=== PATIENT | female | born 1975 | race Two or more races ===

== ENCOUNTER 2024-03-31 14:34 | Outpatient (RCR) | payer MEDICAID, SELFPAY ==
[2024-03-30 13:55] LABS: Basophils % (Auto) 0 % (0-2.5); Eosinophils # (Auto) 0.1 Thou/mm3 (0.0-0.5); Eosinophils % (Auto) 1 % (0-10); Hematocrit 35.6 % (36.0-46.0); Hemoglobin 12.2 g/dL (12.0-16.0); Immature Granulocytes % (Auto) 0 % (0-0); Immature Granulocytes Auto 0.02 Thou/mm3 (0.00-0.00); Lymphocytes # (Auto) 1.2 Thou/mm3 (1.0-4.8); Lymphocytes % (Auto) 20 % (10-50); Mean Corpuscular HGB Conc 34.3 g/dl (31.0-37.0); Mean Corpuscular Volume 85 fL (80-100); Monocytes # (Auto) 0.5 Thou/mm3 (0.0-0.8); Monocytes % (Auto) 7 % (0-12); Neutrophils # (Auto) 4.4 Thou/mm3 (1.8-7.7); Neutrophils % (Auto) 71 % (37-80); Nucleated Red Blood Cell % 0 /100 WBC (0); Platelet Count 166 Thou/mm3 (140-440); RDW Standard Deviation 40.1 fL (36.4-46.3); White Blood Count 6.2 Thou/mm3 (3.6-11.0)
[2024-03-30 14:16] LABS: Alanine Aminotransferase 54 U/L (10-49); Albumin, Serum 4.5 gm/dL (3.5-5.0); Albumin/Globulin Ratio 1.7 (1.2-2.2); Alkaline Phosphatase 84 U/L (46-116); Anion Gap 8 (7-16); Aspartate Amino Transferase 30 U/L (0-34); BUN/Creatinine Ratio 15 Ratio (12-20); Bilirubin,Total 0.3 mg/dL (0.3-1.2); Blood Urea Nitrogen 15 mg/dL (9-23); Calcium 9.6 mg/dL (8.3-10.6); Calcium (Corrected) 9.6 mg/dL (8.5-10.1); Carbon Dioxide 26.5 mMol/L (20.0-31.0); Chloride 106 mMol/L (98-107); Globulin 2.7 gm/dL (2.3-3.5); Glucose 91 mg/dL (74-106); Osmolality,Calculated 280 (275-295); Potassium 4.1 mMol/L (3.4-5.1); Sodium 140 mMol/L (136-145); Total Protein 7.2 gm/dL (5.7-8.2); eGFR > 60 See Note
[2024-03-30 14:19] LABS: Carcinoembryonic Antigen 1.3 ng/mL (0.0-5.0)
== END 2024-04-11 23:59 | disposition home or self-care (01) ==
LOC: SCTC 14:34
PROVIDERS: Internal Medicine Hematology & Oncology; PCP Nurse Practitioner Family; Referring Provider Nurse Practitioner Family; Visit Provider Radiology Therapeutic Radiology
DX: Z08 Encounter for follow-up examination after completed treatment for malignant neoplasm (principal); Z85.41 Personal history of malignant neoplasm of cervix uteri; Z92.21 Personal history of antineoplastic chemotherapy; Z92.3 Personal history of irradiation
CPT/HCPCS: 36591; 80053; 82378; 85025; 99213; A4216; J1642; G0463

== ENCOUNTER 2024-07-08 09:32 | Outpatient (RCR) | payer MEDICAID, SELFPAY | END 2024-07-10 23:59 | disposition home or self-care (01) | LOC: SCTC 09:32 | PROVIDERS: PCP Nurse Practitioner Family; Referring Provider Nurse Practitioner Family; Visit Provider Radiology Therapeutic Radiology | DX: C53.0 Malignant neoplasm of endocervix (principal); Z92.21 Personal history of antineoplastic chemotherapy; Z92.3 Personal history of irradiation | CPT/HCPCS: 96523; 99212; A4216; J1642; G0463 ==

== ENCOUNTER 2024-07-08 10:10 | Outpatient (AMB) | payer MEDICAID, SELFPAY ==
--- NOTE | 2024-07-08 10:31 | GYNCLNT_ITS ---
Vital Signs 07/08/24 10:32 Height 1.63 m Height Method Stated Weight 114.759 kg Weight Measurement Method Standing Scale BMI 43.4 BP 124/76 Blood Pressure Source Automatic Cuff Blood Pressure Location Left Upper Arm Position Sitting Respiration 16 Pulse 75 Pulse Source Monitor Temp 97.6 F Temp Source Oral Pulse Oximetry (%) 98 Oxygen Delivery Method Room Air Allergies/Home Meds Allergies & Medications Allergies Penicillins Allergy (Severe, Verified 07/08/24 10:36) Rash Medication Reconciliation iron-vit C-vit [id number] acid 100 mg-250 mg-25 mcg-1 mg tablet (Iron) 1 tab PO QDAY 08/24/21 [History Confirmed 07/08/24] tranexamic acid 650 mg tablet 650 mg PO Q8H 7 days #21 tabs 07/08/24 [Rx] Intake Visit Data Collection New Patient or Established: Established Patient (seen at [facility] within 3 years) Reason for Visit:: AUB HISTORY OF ENDO CERVICAL CANCER Seen by Clinical Staff ONLY (RN/MA): No Marketing Program Coordinator Required: No Do You Feel Safe at Home: Yes Authorities Contacted: N/A PCP or OBGYN visit in last 3 months: Yes Hx Now: No Are you currently on any form of Control: No Pain Present Currently: No Pain Scale Used: Harrington-Whitfield/Numerical Pain scale:: 0 Smoking Status Smoking Status: Never smoker 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 1. Little interest or pleasure in doing things: not at all 2. Feeling down, depressed, or hopeless: not at all Total score: 0 PHQ-9 3. Trouble falling or staying asleep, or sleeping too much: Not at all 4. Feeling tired or having little energy: Not at all 5. Poor appetite or overeating: Not at all 6. Feeling bad about yourself - or that you are a failure or have let yourself or your family down: Not at all 7. Trouble concentrating on things, such as reading the newspaper or watching television: Not at all 8. Moving or speaking so slowly that other people could have noticed? - Or the opposite - being so fidgety or restless that you have been moving around a lot more than usual: not at all 9. Thoughts that you would be better off or of hurting yourself in some way: Not at all Total score: 0 Source: Developed by Drs. Edis Claire, Ernestine Tran, Nii Mccoy and colleagues, with an educational quang from [employer]. Depression screen completed yes Social History Living Situation History Marital Status: Lives With: Family Housing: House Tobacco History Smoking Status: Never smoker Second Hand Smoke Exposure: Yes Alcohol History Alcohol Intake: Never Substance Use History Substance Use: NO Domestic Abuse History Do You Feel Safe at Home: Yes Past Medical History Past Medical History Have you ever been diagnosed with any of the following: Neurological Problems Cerebrovascular Accident (CVA): No Transient Ischemic Attacks (TIA): No Dementia: No Alzheimer's Disease: No Parkinson's Disease: No Brain Tumor: No Meningitis: No Seizures: No Cardiology Problems Myocardial Infarction: No Cardiac Arrhythmia: No Atrial Fibrillation: No Angina: No Heart Murmur: No Coronary Artery Disease: No Congestive Heart Failure: No Respiratory Problems Chronic Obstructive Pulmonary Disease (COPD): No Asthma: No Bronchitis: No Tuberculosis: No Sleep Apnea: No Stomache/Intestinal Problems Liver Cancer: No Hepatitis: No Colorectal Cancer: No Genital/Urinary Problems Renal Disease: No Reproductive Problems Breast Cancer: No Previous Pregnancies: Yes (8) Musculoskeletal Problems Fractures: Yes Head,Eye,Nose,Throat Problems Cataracts: No Glaucoma: No Blind: No Retinal Detachment: No Macular Degeneration: No Chronic Ear Infections: No Deafness: No Eye Prosthesis: No Endocrine Problems Diabetes Mellitus Type 1: No Diabetes Mellitus Type 2: No Hypoglycemia: No [place]'s Syndrome: No [place]'s Disease: No Blood Problems Anemia: Yes Other Problems Hospitalization: Yes Blood Transfusions: No Blood Transfusion Reaction: Yes Anesthesia Reactions: No Human Immunodeficiency Virus (HIV): No Chicken Pox: Yes Measles: No Mumps: No Rubella (Lithuanian Measles): No Pertussis: No Clostridium Difficile: No Cervical Cancer: Yes Lung Cancer: No Ovarian Cancer: No History of Present Illness HPI Narrative Patient presents with vaginal bleeding, which began on Saturday afternoon following sexual intercourse that morning. She reports seeing blood in the toilet after wiping and describes the bleeding as 'drips,' with a small blood clot passed the day before yesterday. The patient expresses concern about the possibility of cancer returning. She denies any problems except for vaginal dryness since completing radiation treatment in November 2021. She has a history of cervical cancer diagnosed in 2017, for which she completed radiation treatment in November 2021. Her medical history includes an abnormal Pap smear (ASC-H) in 2017, an endometrial biopsy showing HGSIL with insufficient tissue, and a LEEP procedure in 2018 with CIN2 and negative margins. 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 The patient has been prescribed tranexamic acid for bleeding and has a cholesterol level of 400. She has a 14-year-old child, recently went off her diet, gained over 20 pounds, and is advised to take walks for exercise. She is sexually active with her and has been advised to use lubricant during intercourse due to vaginal dryness. The patient also discussed her history, noting it as a protective factor against breast cancer. Diagnostic Test Results and Labs: - PAP (2018): ASC-H - EMB (2017): HGSIL, insufficient tissue - Endometrial curettage (2018): No hyperplasia or malignancy - LEEP (2019): CIN2, negative margins - PAP (2020): High grade MARTY - Biopsy (2021): CIN3 - Biopsy (07-10-2021): Invasive well-differentiated squamous cell carcinoma - Cholesterol: 400 Review of Systems Review of Systems Systems Reviewed: All systems reviewed, normal except as documented Exam General Limitations: no limitations General Appearance: alert, in no apparent distress, comfortable, cooperative, healthy appearing, well developed and well groomed Head Head exam: atraumatic, normocephalic and normal inspection Neck Neck exam: Present normal inspection, full ROM and trachea midline Chest Chest inspection: Present normal inspection and symmetric chest wall rise Abdominal Abdominal exam: Present soft and normal bowel sounds External exam: Present other (Deferred for the OR) Psych Psychiatric exam: Present normal affect and normal mood Skin Skin exam: Present warm, dry, intact and normal color Assessment & Plan Diagnosis / Problem List (1) Squamous cell carcinoma of cervix, stage 2: Status: Acute (2) Abnormal uterine and vaginal bleeding, unspecified: Status: Acute (3) Squamous cell carcinoma of cervix, stage 2: Status: Acute Plan: - Diagnosed in 2021, completed radiation therapy in November 2021. - Recent post-coital bleeding after intercourse on Saturday morning. - Schedule cervical and endometrial biopsy under anesthesia in hospital setting. - Submit insurance authorization for procedure. - Refer to gynecologic oncologist Dr. Tracie Espana in [place]. - Prescribe tranexamic acid for bleeding control. - Advise use of lubricant during intercourse. - Monitor for increased bleeding or passage of blood clots. (4) Abnormal uterine and vaginal bleeding, unspecified: Status: Acute (5) Hyperlipidemia: Status: Acute Plan: - Cholesterol level reported at 400. - Recommend initiation of cholesterol-lowering medication. - Encourage dietary modifications and exercise. (6) Body mass index (BMI) of 40.1 to 44.9 in adult: Status: Acute Plan: - Recent weight gain of over 20 pounds. - Advise against starting Wegovy (semaglutide) at this time. - Recommend resumption of previous diet. - Encourage regular exercise, including walking. Office Procedures OB Clinic LOC & Office Proc's Nursing/Assessment Patient Status: Initial/New Patient OB Clinic Nursing Assessment: Medication Reconciliation, Update PMH in EMR and Vital Signs OB Clinic Coordination of Care: Complex Care and Chronic Disease 1-5, Education Complex Pt/Fam, Consent,records obtained, informed consent, Education Simp Pt/Fam, 2-3 Insurance Autorizations needed, Results/Orders obtained and Staff clarify orders New Patient Charge New Patient Point Assignment: 1129 New Patient Point Charge: [employer] Level 4 ([id number])
[2024-07-08 10:32] VITALS: BP 124/76; PULSE 75; RESP 16; TEMP 36.4; O2SAT 98; BMI 43.4
== END 2024-07-08 10:44 | disposition home or self-care (01) ==
LOC: HODSOBC 10:10
PROVIDERS: PCP Nurse Practitioner Family; Supervising Provider Obstetrics & Gynecology; Visit Provider Obstetrics & Gynecology
DX: N93.9 Abnormal uterine and vaginal bleeding, unspecified (principal); Z85.41 Personal history of malignant neoplasm of cervix uteri
CPT/HCPCS: 99204; 99213; G0463

== ENCOUNTER 2024-07-16 06:30 | Day surgery (SDC) | payer MEDICAID, SELFPAY ==
[2024-07-15 10:18] VITALS: BMI 43.4
[2024-07-15 12:16] LABS: Basophils % (Auto) 1 % (0-2.5); Eosinophils # (Auto) 0.1 Thou/mm3 (0.0-0.5); Eosinophils % (Auto) 1 % (0-10); Hematocrit 39.9 % (36.0-46.0); Hemoglobin 13.4 g/dL (12.0-16.0); Immature Granulocytes % (Auto) 0 % (0-0); Immature Granulocytes Auto 0.01 Thou/mm3 (0.00-0.00); Lymphocytes # (Auto) 1.2 Thou/mm3 (1.0-4.8); Lymphocytes % (Auto) 23 % (10-50); Mean Corpuscular HGB Conc 33.6 g/dl (31.0-37.0); Mean Corpuscular Hemoglobin 28.9 pg (25.0-35.0); Mean Corpuscular Volume 86 fL (80-100); Monocytes # (Auto) 0.3 Thou/mm3 (0.0-0.8); Monocytes % (Auto) 6 % (0-12); Neutrophils # (Auto) 3.6 Thou/mm3 (1.8-7.7); Neutrophils % (Auto) 69 % (37-80); Nucleated Red Blood Cell % 0 /100 WBC (0); Platelet Count 177 Thou/mm3 (140-440); RDW Standard Deviation 40.3 fL (36.4-46.3); Red Blood Count 4.64 Miln/mm3 (4.00-5.20); White Blood Count 5.2 Thou/mm3 (3.6-11.0)
[2024-07-15 12:54] LABS: Alanine Aminotransferase 57 U/L (10-49); Albumin, Serum 4.4 gm/dL (3.5-5.0); Albumin/Globulin Ratio 1.6 (1.2-2.2); Alkaline Phosphatase 92 U/L (46-116); Anion Gap 9 (7-16); Aspartate Amino Transferase 34 U/L (0-34); BUN/Creatinine Ratio 14 Ratio (12-20); Bilirubin,Total 0.4 mg/dL (0.3-1.2); Blood Urea Nitrogen 13 mg/dL (9-23); Calcium 9.6 mg/dL (8.3-10.6); Calcium (Corrected) 9.6 mg/dL (8.5-10.1); Carbon Dioxide 28.3 mMol/L (20.0-31.0); Chloride 105 mMol/L (98-107); Creatinine (Component) 0.9 mg/dL (0.6-1.3); Globulin 2.7 gm/dL (2.3-3.5); Glucose 105 mg/dL (74-106); Osmolality,Calculated 283 (275-295); Potassium 4.3 mMol/L (3.4-5.1); Sodium 142 mMol/L (136-145); Total Protein 7.1 gm/dL (5.7-8.2); eGFR > 60 See Note
[2024-07-15 13:54] LABS: HCG,Qualitative Serum Negative
[2024-07-16] VITALS (8 sets, daily range): BP systolic 91–133; BP diastolic 47–86; PULSE 71–90; RESP 13–19; TEMP 36.2–36.4; O2SAT 95–99; BMI 44.1
[2024-07-16] MEDS: RINGERS LACTATED 1000 ML 1,000 ML 20 ML IV (07:30)
--- NOTE | 2024-07-16 07:32 | EKG_ITS ---
[facility] (Formerly [facility]) Test Date: 2024-07-16 Pat Name: VICTOR HUGO HAMILTON Department: Room: - Gender: Female Signs Cleaner: NATE : 1975 Requested By: Mitesh Zavala Order Number: [id number] Reading MD: Mitesh Zavala Measurements Intervals [place] Rate: 84 P: 55 WA: 156 QRS: 17 QRSD: 80 T: 30 QT: 387 QTc: 459 Interpretive Statements SINUS RHYTHM WITH FREQUENT VENTRICULAR PREMATURE COMPLEXES IN A BIGEMINAL PATTERN ABNORMAL RHYTHM ECG No previous ECG available for comparison /store/S0/[id number].pdf
[2024-07-16] MEDS: MIDAZOLAM INJ 1 MG/ML VIAL 2 ML 2 MG IV (08:21)
--- NOTE | 2024-07-16 09:08 | SUR.PHASEI ---
pt received from OR in recovery bay 5. pt asleep but responds to voice, breathing unlabored on nc 4l. v/s stable. pt dressing peirpad cdi. report received from Dr. Zavala and Scotty Hill.
--- NOTE | 2024-07-16 09:10 | PD.GYNPROC ---
Operative Note - HUMAN CAPITAL ANALYST Procedure Date of procedure: 07/16/24 Procedure Performed: Exam under anesthesia, biopsy of cervix and endocervical canal Indication: Stage II cervical carcinoma status post brachytherapy with new onset vaginal bleeding Anesthesia type: General Procedure description: Informed consent was obtained and the patient was taken to the operating table. General anesthesia was administered and she was positioned in the dorsal lithotomy position. The perineum was prepped in the usual sterile fashion and sterile drapes were applied. A self-retaining speculum was placed in the vagina and the cervix was visualized. The cervix was consistent in appearance with previous radiation therapy status and almost flush with the surrounding vaginal wall with the cervical os appearing like a pinpoint. The anterior lip was grasped using a atraumatic forceps and placed under caudal traction. The cervix was gently dilated but significant resistance was felt. A sound was used to probe the cervical canal and it could be probed only up to 2.5 cm. At this time serial punch biopsies were obtained from the circumference of the cervix and endocervical curettage was performed. The planned hysteroscopy portion of the procedure was abandoned due to difficulty dilating the cervix and the risk of perforation. All the biopsy sites were observed and all bleeding points were cauterized using the Bovie. All instruments were now withdrawn. The patient's skin was thoroughly cleaned, she was taken out of lithotomy, undraped. General anesthesia was reversed and she was transferred to the recovery room in a stable and awake condition. Patient tolerated the entire procedure well. No acute complications were encountered. All instrument, sponge and lap counts were correct x 2. Specimen: other Estimated blood loss (ml): 5 Complications: none Surgical staff Operation Date: 07/16/24 08:30 <No data on this case meets the specified criteria> Diagnosis Discharge Diagnosis (1) Squamous cell carcinoma of cervix, stage 2: Status: Acute (2) Abnormal uterine and vaginal bleeding, unspecified: Status: Acute Problem List Completed Was Problem List Reviewed/Reconciled?: Yes
--- NOTE | 2024-07-16 09:54 | SUR.PHASEII ---
pt able to tolerate oral fluids without difficulty swallowing or nausea/vomiting.
--- NOTE | 2024-07-16 10:23 | SUR.PHASEII ---
pt awake and alert, breathing unlabored on room air. v/s stable. pt dressing peripad cdi. pt able to ambulate to wheelchair with steady gait. d/c instructions given with Emily in room, all questions anwered. pt d/c via wheelchair with all belongings.
== END 2024-07-16 10:23 | disposition home or self-care (01) ==
PROVIDERS: PCP Family Medicine; Referring Provider Obstetrics & Gynecology; Visit Provider Obstetrics & Gynecology
PROC: 0UJD8ZZ Inspection of Uterus and Cervix, Via Natural or Artificial Opening Endoscopic (ICD-10-PCS; CPT 58555; principal; 2024-07-16 08:30)
DX: N93.9 Abnormal uterine and vaginal bleeding, unspecified (principal); Z85.41 Personal history of malignant neoplasm of cervix uteri; Z01.810 Encounter for preprocedural cardiovascular examination
CPT/HCPCS: 58558; 36415; 80053; 84703; 85025; 86850; 86900; 86901; 93005; A4217; A4649; J0461; J0690; J2250; J2371; J2405; J2704; J3010; J3490; J7120

== ENCOUNTER 2024-08-11 15:13 | Outpatient (AMB) | payer MEDICAID, SELFPAY ==
--- NOTE | 2024-08-11 15:07 | AMB.GYNCLNOT ---
Allergies/Home Meds Allergies & Medications Allergies Penicillins Allergy (Severe, Verified 08/11/24 15:07) Rash Medication Reconciliation atorvastatin 10 mg tablet 10 mg PO QPM 07/15/24 [History Confirmed 08/11/24] Intake Visit Data Collection New Patient or Established: Established Patient (seen at [facility] within 3 years) Reason for Visit:: POST OP PATHOLOGY Consent obtained for Telemed Visit: Yes Seen by Clinical Staff ONLY (RN/MA): No Wildlife Policy Professional Required: No Do You Feel Safe at Home: Yes Authorities Contacted: N/A PCP or OBGYN visit in last 3 months: Yes Hx Now: No Are you currently on any form of Control: No Pain Present Currently: No Pain Scale Used: Harrington-Whitfield/Numerical Pain scale:: 0 Smoking Status Smoking Status: Never smoker 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 1. Little interest or pleasure in doing things: not at all 2. Feeling down, depressed, or hopeless: not at all Total score: 0 PHQ-9 3. Trouble falling or staying asleep, or sleeping too much: Not at all 4. Feeling tired or having little energy: Not at all 5. Poor appetite or overeating: Not at all 6. Feeling bad about yourself - or that you are a failure or have let yourself or your family down: Not at all 7. Trouble concentrating on things, such as reading the newspaper or watching television: Not at all 8. Moving or speaking so slowly that other people could have noticed? - Or the opposite - being so fidgety or restless that you have been moving around a lot more than usual: not at all 9. Thoughts that you would be better off or of hurting yourself in some way: Not at all Total score: 0 Source: Developed by Drs. Edis Claire, Ernestine Tran, Nii Mccoy and colleagues, with an educational quang from [employer]. Depression screen completed yes Social History Living Situation History Lives With: Family Housing: House Tobacco History Smoking Status: Never smoker Second Hand Smoke Exposure: Yes Alcohol History Alcohol Intake: Never Substance Use History Substance Use: NO Domestic Abuse History Do You Feel Safe at Home: Yes Past Medical History Past Medical History Have you ever been diagnosed with any of the following: Neurological Problems Cerebrovascular Accident (CVA): No Transient Ischemic Attacks (TIA): No Dementia: No Alzheimer's Disease: No Parkinson's Disease: No Brain Tumor: No Meningitis: No Seizures: No Cardiology Problems Myocardial Infarction: No Cardiac Arrhythmia: No Atrial Fibrillation: No Angina: No Heart Murmur: No Coronary Artery Disease: No Hypercholesterolemia: Yes Congestive Heart Failure: No Respiratory Problems Chronic Obstructive Pulmonary Disease (COPD): No Asthma: No Bronchitis: No Tuberculosis: No Sleep Apnea: No Stomache/Intestinal Problems Liver Cancer: No Hepatitis: No Colorectal Cancer: No Obesity: Yes Genital/Urinary Problems Renal Disease: No Reproductive Problems Breast Cancer: No Previous Pregnancies: Yes (8) Musculoskeletal Problems Arthritis: Yes Fractures: No Head,Eye,Nose,Throat Problems Cataracts: No Glaucoma: No Blind: No Retinal Detachment: No Macular Degeneration: No Chronic Ear Infections: No Deafness: No Eye Prosthesis: No Endocrine Problems Diabetes Mellitus Type 1: No Diabetes Mellitus Type 2: No Hypoglycemia: No [place]'s Syndrome: No [place]'s Disease: No Blood Problems Anemia: No Other Problems Hospitalization: Yes Shingles: No Blood Transfusions: No Blood Transfusion Reaction: No Anesthesia Reactions: No Chemotherapy: Yes (2021) Radiation Therapy: Yes (2021) Human Immunodeficiency Virus (HIV): No Chicken Pox: Yes Measles: No Mumps: No Rubella (Portuguese Measles): No Pertussis: No Clostridium Difficile: No Cervical Cancer: Yes Lung Cancer: No Ovarian Cancer: No History of Present Illness HPI Narrative Patient seen via telehealth for follow-up after cervical and endometrial biopsy performed under anesthesia on 07/16/24. She initially presented on 07/08/24 with post-coital bleeding following intercourse, described as light ?drips? with a small clot. She was concerned about cancer recurrence given her history of cervical cancer treated with radiation in November 2021. Reports that bleeding has since resolved. No new symptoms. Continues to have vaginal dryness; sexually active with , using lubricant as recommended. Denies pain, discharge, or other issues. Review of Systems Review of Systems Systems Reviewed: All systems reviewed, normal except as documented Results Objective Laboratory: Pathology from 07/16/24 cervical and endometrial biopsies: ? Negative for dysplasia or malignancy Assessment & Plan Diagnosis / Problem List (1) Personal history of malignant neoplasm of cervix uteri: Status: Acute (2) Postcoital and contact bleeding: Status: Acute (3) Postmenopausal bleeding: Status: Acute (4) Pure hypercholesterolemia, unspecified: Status: Acute (5) Overweight: Status: Acute Plan ? Reassure patient: biopsy negative for malignancy. ? Continue use of vaginal lubricant; consider vaginal estrogen if symptoms persist. ? Reinforce diet and exercise; defer weight-loss medication for now. ? Recommend PCP follow-up for initiation of cholesterol-lowering therapy. ? Return to clinic with any recurrence of bleeding or new symptoms. Let me know if you'd like to copy this into your EMR or convert to a billing-optimized version. Office Procedures OB Clinic LOC & Office Proc's Nursing/Assessment Patient Status: Established Patient OB Clinic Nursing Assessment: Medication Reconciliation and Update PMH in EMR OB Clinic Coordination of Care: Complex Care and Chronic Disease 1-5, Consent,records obtained, informed consent, Education Simp Pt/Fam, Results/Orders obtained and Staff clarify orders Established Patient Charge Established Patient Point Assignment: 75 Telehealth If patient is seen using Teleconference methods, complete New/Est section, but DO NOT deepa points only deepa the correct Telemed visit type Telemed Phone/Video with patient at home & Dr,PA,PLATE GLASS POLISHER: Yes
== END 2024-08-11 15:39 | disposition home or self-care (01) ==
LOC: HODSOBC 15:13
PROVIDERS: PCP Family Medicine; Referring Provider Family Medicine; Supervising Provider Obstetrics & Gynecology; Visit Provider Obstetrics & Gynecology
DX: N95.0 Postmenopausal bleeding (principal); E78.00 Pure hypercholesterolemia, unspecified; E66.3 Overweight; Z85.41 Personal history of malignant neoplasm of cervix uteri; N93.0 Postcoital and contact bleeding
CPT/HCPCS: 99212; G0463

== ENCOUNTER 2024-09-02 11:02 | Outpatient (RCR) | payer MEDICAID, SELFPAY ==
[2024-09-01 14:50] LABS: Basophils % (Auto) 1 % (0-2.5); Eosinophils # (Auto) 0.1 Thou/mm3 (0.0-0.5); Eosinophils % (Auto) 2 % (0-10); Hematocrit 35.5 % (36.0-46.0); Hemoglobin 12.3 g/dL (12.0-16.0); Immature Granulocytes % (Auto) 0 % (0-0); Immature Granulocytes Auto 0.02 Thou/mm3 (0.00-0.00); Lymphocytes # (Auto) 1.3 Thou/mm3 (1.0-4.8); Lymphocytes % (Auto) 21 % (10-50); Mean Corpuscular HGB Conc 34.6 g/dl (31.0-37.0); Mean Corpuscular Hemoglobin 29.8 pg (25.0-35.0); Mean Corpuscular Volume 86 fL (80-100); Monocytes # (Auto) 0.3 Thou/mm3 (0.0-0.8); Monocytes % (Auto) 5 % (0-12); Neutrophils # (Auto) 4.3 Thou/mm3 (1.8-7.7); Neutrophils % (Auto) 71 % (37-80); Nucleated Red Blood Cell % 0 /100 WBC (0); Platelet Count 161 Thou/mm3 (140-440); RDW Standard Deviation 40.3 fL (36.4-46.3); Red Blood Count 4.13 Miln/mm3 (4.00-5.20)
[2024-09-01 15:14] LABS: Alanine Aminotransferase 46 U/L (10-49); Albumin, Serum 4.2 gm/dL (3.5-5.0); Albumin/Globulin Ratio 1.6 (1.2-2.2); Alkaline Phosphatase 90 U/L (46-116); Anion Gap 5 (7-16); Aspartate Amino Transferase 30 U/L (0-34); BUN/Creatinine Ratio 12 Ratio (12-20); Bilirubin,Total 0.4 mg/dL (0.3-1.2); Blood Urea Nitrogen 13 mg/dL (9-23); Carbon Dioxide 25.9 mMol/L (20.0-31.0); Chloride 110 mMol/L (98-107); Creatinine (Component) 1.1 mg/dL (0.6-1.3); Globulin 2.6 gm/dL (2.3-3.5); Glucose 126 mg/dL (74-106); Osmolality,Calculated 283 (275-295); Potassium 3.7 mMol/L (3.4-5.1); Sodium 141 mMol/L (136-145); Total Protein 6.8 gm/dL (5.7-8.2); eGFR > 60 See Note
[2024-09-01 15:25] LABS: Carcinoembryonic Antigen 1.8 ng/mL (0.0-5.0)
--- NOTE | 2024-09-02 14:47 | CTCFLWUP_ITS ---
Patient: AUREA KELSEY : 1975 Page 2 of 2 FOLLOW UP NOTE DATE OF SERVICE: 09/02/2024 NAME: AUREA KELSEY ACCOUNT: [id number] : 1975 AGE: 49 INTERVAL HISTORY: Chief Complaint Bleeding after sex, discomfort during intercourse described as a pinch when he goes all the way in History of Present Illness Aurea is a 49-year-old female with a history of stage 2 endocervical cancer presenting for follow-up after experiencing bleeding after sex and undergoing a repeat biopsy, which came back negative. The patient reports that sexual intercourse with her doesn't cause pain but feels like a pinch when he fully penetrates, possibly due to fibrosis or bands at the end of the vagina. The bleeding after intercourse is likely attributed to vaginal dryness and insufficient dilation during sexual activity. Aurea mentions that sex with her feels like a pinch when he goes all the way in, which may be related to the structure of her vagina post-cancer treatment. She has not reported any other associated symptoms or impact on her daily functioning. Aurea's cervix was noted to be consistent with a pinpoint, and significant resistance was felt during a previous dilation attempt. The cervical canal could only be probed up to 2.5 centimeters. The patient inquired about the necessity of her uterus, given that she had an ablation and is not planning to have more children. In terms of future plans, Aurea mentioned working in [place] in October and November, which may influence the timing of any potential procedures or treatments. Medical History - Stage 2 endocervical cancer - Vaginal dryness Surgical History - Endometrial ablation Social History - Marital Status: - Occupation: Plans to work in [place] in October and November - Sexual Activity: Sexually active with Review of Systems Genitourinary: Positive for bleeding after sex, vaginal dryness. Negative for pain during intercourse, but positive for pinching sensation with deep penetration. 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 . Malignant neoplasm of endocervix [ICD10] C53.0 DATE OF DIAGNOSIS: STAGE/TNM: TREATMENT HISTORY: Care?Plan Start?Date Cycle Day Intent CISplatin?40?mg/m*2?+?Radiation?Therapy?-?Primary,?Adj,?Rec?1?low?fluid?load 08/31/2021 1 7 Curative?(primary) VENOfer?200mg?IV?wkly?for?10?weeks 08/30/2021 1 70 Palliative HISTORY OF PRESENT ILLNESS: Aurea Kelsey is a 49-year-old ENG speaking female without significant past medical history has the following oncology history. 05/16/2017: Patient had endometrial biopsy due to excessive vaginal bleeding 05/23/2017: Pap smear? 07/05/2017: Endometrial as well as cervix biopsy? 06/13/2018: Patient had endometrial biopsy for abnormal uterine bleeding? 09/12/2018: Ms. Kelsey had cervix LEEP procedure 04/18/2021: Ms. Kelsey had cervix biopsy again due to persistent vaginal bleeding 05/24/2021: Ms. Kelsey had endometrial biopsy again for menorrhagia. 07/10/2021: Ms. Kelsey had a loop electrode excision procedure of cervix 07/27/2021: PET/CT scan? 08/01/2021: MRI of the pelvis with and without contrast? 08/09/2021: Hemoglobin 8.5, MCV 79, WBC 10.6, ANC 7.1, platelets 289,000, creatinine 0.75. 08/30/2021 - 10/06/2021: Ms. Kelsey was treated with chemoradiation. She received weekly cisplatin during radiation therapy. 11/22/2021: Patient completed HDR brachytherapy via tandem and ovoid for 2100 cGy over 3 treatment sessions. 02/14/2023: PET/CT scan OTHER MEDICAL HISTORY/CONDITIONS: FAMILY HISTORY: ?Clone Family Hx? 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 None?[place] Meds? Medications Last Reconciled by Earline Malone MA on 09/02/2024 ALLERGIES: PENICILLAMINE REVIEW OF SYSTEMS: A complete 14-point review of systems was performed and is negative except as noted in interval history. PHYSICAL EXAMINATION: VITAL SIGNS: Temperature?97.6, B/P?138/81, Oxygen?Saturation?100% Weight?257?lbs (Change?since?09/01/24:?1.4?lbs) PAIN: 0 - No pain ECOG Performance Status: 0 - Asymptomatic and fully active GENERAL APPEARANCE: Appears well, in no apparent distress, appropriately interactive. HEENT: Normocephalic, no temporal wasting, normal conjunctiva, no scleral icterus, normal hearing, lips without lesions, neck normal range of motion. CARDIOVASCULAR: Not assessed. PULMONARY: Normal respiratory effort, no respiratory distress or use of accessory muscles, speaking in full sentences, no tachypnea. EXTREMITIES: No pedal edema or cyanosis. SKIN: Normal skin appearance. NEUROLOGIC: Alert and oriented x4. PSHYCHIATRIC: Appropriate affect, mood normal, behavior normal, intact thought and speech. LABORATORY DATA: I have personally reviewed and interpreted each of the patient?s relevant lab tests, abnormal findings are below: Date 07/15/24 09/01/24 ??WHITE?BLOOD?COUNT?(Thou/mm3) ? 6.0 ??RED?BLOOD?COUNT?(Miln/mm3) ? 4.13 ??HEMOGLOBIN?(gm/dl) ? 12.3 ??HEMATOCRIT?(%) ? 35.5?L ??PLATELET?COUNT?(Thou/mm3) ? 161 ??NEUTROPHILS?%,?AUTO?(%) ? 71 ??LYMPH?%,?AUTO?(%) ? 21 ??NEUTROPHILS,?AUTO?(Thou/mm3) ? 4.3 ??GLUCOSE,RANDOM?(mg/dL) 105 126?H ??BLOOD?UREA?NITROGEN?(mg/dL) 13 13 ??CREATININE?(mg/dL) 0.90 1.10 ??SODIUM?(mmol/L) 142 141 ??POTASSIUM?(mmol/L) 4.3 3.7 ??CHLORIDE?(mmol/L) 105 110?H ??CrCl?(CandG)?(ml/min) 96.24 78.85 ??AST/SGOT?(Unit/L) 34 30 ??ALT/SGPT?(Unit/L) 57?H 46 ??ALKALINE?PHOSPHATASE?(Unit/L) 92 90 ??BILIRUBIN,?TOTAL?(mg/dL) 0.4 0.4 ??PROTEIN?TOTAL?(gm/dl) 7.1 6.8 ??ALBUMIN,?SERUM?(gm/dl) 4.4 4.2 ??GLOBULIN?(gm/dl) 2.7 2.6 ??ALBUMIN/GLOBULIN?RATIO 1.6 1.6 ??CALCIUM,?SERUM?(mg/dL) 9.6 9.0 ??CALCIUM?SERUM?(CORRECTED)?(mg/dL) 9.6 9.0 ??CEA?(O*)?(ng/ml) ? 1.8 ASSESSMENT/PLAN: 1. 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 S/p chemoradiation with weekly cisplatin (08/30/2021 - 10/06/2021) S/p HDR brachytherapy completed on 11/22/2021 Aurea, a 49-year-old female with a history of stage 2 endocervical cancer, presents with post-coital bleeding and discomfort during intercourse. Post-coital bleeding and dyspareunia s/p biopsy revealing negative for any cancer assessment: Patient reports bleeding after sex and discomfort during intercourse. A repeat biopsy was negative for cancer recurrence. The bleeding is likely due to vaginal dryness and insufficient dilation during intercourse. Patient describes a pinching sensation when her partner fully penetrates, pos sibly due to fibrosis or bands at the end of the vagina. Dr. Arias's notes indicate a pinpoint cervix with significant resistance during dilation, and the cervical canal could only be probed up to 2.5 centimeters. Plan: - Recommend use of vaginal dilators, starting with the smallest size and gradually increasing - Advise use of lubrication with dilators to help loosen the vaginal area - Discuss potential hysterectomy with opinion polls survey worker, Dr. Lincoln, to improve quality of life and eliminate future cancer risk - Patient to consider hysterectomy after returning from work in [place] in October and November - Patient interested in vaginal hysterectomy by Dr. Espana in [facility]. Advised diet and exercise Advised to follow-up with her opinion polls survey worker ORDERS: Order # Description [id number] + Comprehensive Metabolic Panel - 12 + CBC with Auto Diff [id number] RETURN TO CLINIC: I will see her back in the clinic in 6 month. BILLING AND COMPLIANCE: I reviewed external records from providers outside my specialty as summarized above. I spent a total of 50 minutes on this patient?s care on the day of their visit excluding time spent related to any billed procedures. This time includes time spent with the patient as well as time spent documenting in the medical record, reviewing patients records and tests, obtaining history, placing orders, communicating with other healthcare professionals, counseling the patient, family or caregiver, and/or care coordination for the diagnoses above. Patient instructions Dear Aurea, Thank you for visiting today. Here is a summary of the cheney instructions: Medical Devices: - Use vaginal dilators to help with vaginal dryness and discomfort during sex - Start with the smallest size and slowly increase - Use with lubrication to help loosen the vaginal area Follow-up: - Discuss hysterectomy option with Dr. Lincoln, your opinion polls survey worker - Consider scheduling hysterectomy with Dr. Espana in [place] after returning from work in [place] Lifestyle Changes: - Use lubrication during sexual activity to reduce discomfort Please reach out if you have any questions or concerns. Best Regards, agata lindsey, Oncology Electronically Signed by: Agata Lindsey MD T: 2:45 PM CC: Jeff?Jodi? PCP: Jeff Zapata Referring: Jeff Zapata This document was completed utilizing speech recognition software. Grammatical errors, random word insertions, pronoun errors, and incomplete sentences are an occasional consequence of this system due to software limitations, ambient noise, and hardware issues. Any formal questions or concerns about the content, text or information contained within the body of this dictation should be directly addressed to the provider for clarification.
== END 2024-09-09 23:59 | disposition home or self-care (01) ==
LOC: SCTC 11:02
PROVIDERS: Referring Provider Radiology Therapeutic Radiology; Visit Provider Internal Medicine Hematology & Oncology
DX: Z08 Encounter for follow-up examination after completed treatment for malignant neoplasm (principal); Z85.41 Personal history of malignant neoplasm of cervix uteri; Z92.3 Personal history of irradiation; Z92.21 Personal history of antineoplastic chemotherapy; N94.10 Unspecified dyspareunia; N93.0 Postcoital and contact bleeding; E66.9 Obesity, unspecified; Z68.41 Body mass index [BMI] 40.0-44.9, adult
CPT/HCPCS: 36591; 80053; 82378; 85025; 99212; A4216; J1642; G0463

== ENCOUNTER 2024-10-15 06:54 | Outpatient (RCR) | payer MEDICAID, SELFPAY | END 2024-11-09 23:59 | disposition home or self-care (01) | LOC: SCTC 06:54 | PROVIDERS: Visit Provider Radiology Therapeutic Radiology | DX: C53.0 Malignant neoplasm of endocervix (principal) | CPT/HCPCS: 36591; A4216; J1642 ==

== ENCOUNTER 2025-03-04 15:06 | Outpatient (RCR) | payer MEDICAID, SELFPAY ==
[2025-03-03 16:17] LABS: Basophils # (Auto) 0.0 Thou/mm3 (0.0-0.2); Basophils % (Auto) 0 % (0-2.5); Eosinophils # (Auto) 0.1 Thou/mm3 (0.0-0.5); Eosinophils % (Auto) 2 % (0-10); Hematocrit 35.8 % (36.0-46.0); Hemoglobin 12.3 g/dL (12.0-16.0); Immature Granulocytes Auto 0.02 Thou/mm3 (0.00-0.00); Lymphocytes # (Auto) 1.4 Thou/mm3 (1.0-4.8); Lymphocytes % (Auto) 20 % (10-50); Mean Corpuscular HGB Conc 34.4 g/dl (31.0-37.0); Mean Corpuscular Hemoglobin 29.2 pg (25.0-35.0); Mean Corpuscular Volume 85 fL (80-100); Monocytes # (Auto) 0.4 Thou/mm3 (0.0-0.8); Monocytes % (Auto) 5 % (0-12); Neutrophils # (Auto) 5.0 Thou/mm3 (1.8-7.7); Neutrophils % (Auto) 73 % (37-80); Nucleated Red Blood Cell # 0.00 Thou/mm3 (0.00-0.00); Nucleated Red Blood Cell % 0 /100 WBC (0); Platelet Count 182 Thou/mm3 (140-440); RDW Standard Deviation 39.6 fL (36.4-46.3); Red Blood Count 4.21 Miln/mm3 (4.00-5.20); White Blood Count 6.9 Thou/mm3 (3.6-11.0)
[2025-03-03 16:36] LABS: Alanine Aminotransferase 76 U/L (10-49); Albumin, Serum 4.6 gm/dL (3.5-5.0); Albumin/Globulin Ratio 2.0 (1.2-2.2); Alkaline Phosphatase 91 U/L (46-116); Anion Gap 10 (7-16); Aspartate Amino Transferase 42 U/L (0-34); BUN/Creatinine Ratio 15 Ratio (12-20); Bilirubin,Total 0.3 mg/dL (0.3-1.2); Blood Urea Nitrogen 12 mg/dL (9-23); Calcium 9.2 mg/dL (8.3-10.6); Calcium (Corrected) 9.2 mg/dL (8.5-10.1); Carbon Dioxide 25.8 mMol/L (20.0-31.0); Chloride 105 mMol/L (98-107); Creatinine (Component) 0.8 mg/dL (0.6-1.3); Globulin 2.3 gm/dL (2.3-3.5); Glucose 126 mg/dL (74-106); Osmolality,Calculated 282 (275-295); Potassium 3.5 mMol/L (3.4-5.1); Sodium 141 mMol/L (136-145); Total Protein 6.9 gm/dL (5.7-8.2); eGFR > 60 See Note
[2025-03-03 17:03] LABS: CA 125 6.0 U/mL (<30.2)
--- NOTE | 2025-03-07 22:51 | CTCFLWUP_ITS ---
Patient: AUREA HAMILTON : 1975 Page 7 of 8 FOLLOW UP NOTE DATE OF SERVICE: 03/04/2025 NAME: AUREA HAMILTON ACCOUNT: [id number] : 1975 AGE: 49 INTERVAL HISTORY: Chief Complaint Patient says that bleeding often occurs at any time and no bleeding once the blood has come out. It happened 1 time when she was having a shower. After the the shower she did not notice any staining on her underwear. Patient says that it is likely after sexual activity and her and she are very scared. She was advised to get vaginal dilators and some were provided by interventional radiology team. Patient has not been consistent to use them History of Present Illness Aurea is a 49-year-old female with a history of stage 2 endocervical cancer presenting for follow-up after experiencing bleeding after sex and undergoing a repeat biopsy, which came back negative. The patient reports that sexual intercourse with her doesn't cause pain but feels like a pinch when he fully penetrates, possibly due to fibrosis or bands at the end of the vagina. The bleeding after intercourse is likely attributed to vaginal dryness and insufficient dilation during sexual activity. Aurea mentions that sex with her feels like a pinch when he goes all the way in, which may be related to the structure of her vagina post-cancer treatment. She has not reported any other associated symptoms or impact on her daily functioning. Aurea's cervix was noted to be consistent with a pinpoint, and significant resistance was felt during a previous dilation attempt. The cervical canal could only be probed up to 2.5 centimeters. The patient inquired about the necessity of her uterus, given that she had an ablation and is not planning to have more children. 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 Medical History - Stage 2 endocervical cancer - Vaginal dryness Surgical History - Endometrial ablation Social History - Marital Status: - Occupation: Plans to work in [place] in October and November - Sexual Activity: Sexually active with Review of Systems Genitourinary: Positive for bleeding after sex, vaginal dryness. Negative for pain during intercourse, but positive for pinching sensation with deep penetration. 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 . Malignant neoplasm of endocervix [ICD10] C53.0 DATE OF DIAGNOSIS: STAGE/TNM: TREATMENT HISTORY: Care?Plan Start?Date Cycle Day Intent CISplatin?40?mg/m*2?+?Radiation?Therapy?-?Primary,?Adj,?Rec?1?low?fluid?load 08/31/2021 1 7 Curative?(primary) VENOfer?200mg?IV?wkly?for?10?weeks 08/30/2021 1 70 Palliative HISTORY OF PRESENT ILLNESS: Aurea Hamilton is a 49-year-old ENG speaking female without significant past medical history has the following oncology history. 05/16/2017: Patient had endometrial biopsy due to excessive vaginal bleeding 05/23/2017: Pap smear? 07/05/2017: Endometrial as well as cervix biopsy? 06/13/2018: Patient had endometrial biopsy for abnormal uterine bleeding? 09/12/2018: Ms. Hamilton had cervix LEEP procedure 04/18/2021: Ms. Hamilton had cervix biopsy again due to persistent vaginal bleeding 05/24/2021: Ms. Hamilton had endometrial biopsy again for menorrhagia. 07/10/2021: Ms. Hamilton had a loop electrode excision procedure of cervix 07/27/2021: PET/CT scan? 08/01/2021: MRI of the pelvis with and without contrast? 08/09/2021: Hemoglobin 8.5, MCV 79, WBC 10.6, ANC 7.1, platelets 289,000, creatinine 0.75. 08/30/2021 - 10/06/2021: Ms. Hamilton was treated with chemoradiation. She received weekly cisplatin during radiation therapy. 11/22/2021: Patient completed HDR brachytherapy via tandem and ovoid for 2100 cGy over 3 treatment sessions. 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 None Medications Last Reconciled by Raya Rendon MA on 03/04/2025 ALLERGIES: PENICILLAMINE REVIEW OF SYSTEMS: A complete 14-point review of systems was performed and is negative except as noted in interval history. PHYSICAL EXAMINATION: VITAL SIGNS: Temperature?97.7, B/P?133/85, Oxygen?Saturation?99% Weight?258?lbs (Change?since?03/03/25:?0.6?lbs) PAIN: 0 - No pain ECOG Performance Status: 0 - Asymptomatic and fully active GENERAL APPEARANCE: Appears well, in no apparent distress, appropriately interactive. HEENT: Normocephalic, no temporal wasting, normal conjunctiva, no scleral icterus, normal hearing, lips without lesions, neck normal range of motion. CARDIOVASCULAR: Not assessed. PULMONARY: Normal respiratory effort, no respiratory distress or use of accessory muscles, speaking in full sentences, no tachypnea. EXTREMITIES: No pedal edema or cyanosis. SKIN: Normal skin appearance. NEUROLOGIC: Alert and oriented x4. PSHYCHIATRIC: Appropriate affect, mood normal, behavior normal, intact thought and speech. LABORATORY DATA: I have personally reviewed and interpreted each of the patient?s relevant lab tests, abnormal findings are below: Date 09/01/24 03/03/25 ??WHITE?BLOOD?COUNT?(Thou/mm3) ? 6.9 ??RED?BLOOD?COUNT?(Miln/mm3) ? 4.21 ??HEMOGLOBIN?(gm/dl) ? 12.3 ??HEMATOCRIT?(%) ? 35.8?L ??PLATELET?COUNT?(Thou/mm3) ? 182 ??NEUTROPHILS?%,?AUTO?(%) ? 73 ??LYMPH?%,?AUTO?(%) ? 20 ??NEUTROPHILS,?AUTO?(Thou/mm3) ? 5.0 ??GLUCOSE,RANDOM?(mg/dL) 126?H 126?H ??BLOOD?UREA?NITROGEN?(mg/dL) 13 12 ??CREATININE?(mg/dL) 1.10 0.80 ??SODIUM?(mmol/L) 141 141 ??POTASSIUM?(mmol/L) 3.7 3.5 ??CHLORIDE?(mmol/L) 110?H 105 ??CrCl?(CandG)?(ml/min) 78.85 108.86 ??AST/SGOT?(Unit/L) 30 42?H ??ALT/SGPT?(Unit/L) 46 76?H ??ALKALINE?PHOSPHATASE?(Unit/L) 90 91 ??BILIRUBIN,?TOTAL?(mg/dL) 0.4 0.3 ??PROTEIN?TOTAL?(gm/dl) 6.8 6.9 ??ALBUMIN,?SERUM?(gm/dl) 4.2 4.6 ??GLOBULIN?(gm/dl) 2.6 2.3 ??ALBUMIN/GLOBULIN?RATIO 1.6 2.0 ??CALCIUM,?SERUM?(mg/dL) 9.0 9.2 ??CALCIUM?SERUM?(CORRECTED)?(mg/dL) 9.0 9.2 ??CA?125?(O*)?(Unit/mL) ? 6.0 ASSESSMENT/PLAN: 1. 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 S/p chemoradiation with weekly cisplatin (08/30/2021 - 10/06/2021) S/p HDR brachytherapy completed on 11/22/2021 Aurea, a 49-year-old female with a history of stage 2 endocervical cancer, presents with post-coital bleeding and discomfort during intercourse. - Recommend use of vaginal dilators, starting with the smallest size and gradually increasing - Advise use of lubrication with dilators to help loosen the vaginal area - Discuss potential hysterectomy with maintenance supervisor electrical, referral placed to improve quality of life and eliminate future cancer risk - I will get imaging as patient's history of post coital bleeding which is now random is very concerning for recurrence Will get MRI of the abdomen and pelvis with contrast to evaluate for any reoccurrence of cancer - Patient interested in vaginal hysterectomy by Dr. Espana in [facility]. Advised diet and exercise Advised to follow-up with her maintenance supervisor electrical ORDERS: Order # Description [id number] MRI + Abdomen and Pelvis + With Contrast [id number] Comprehensive Metabolic Panel - 12 + CBC with Auto Diff + CA [id number] Follow Up 3 Months [id number] RETURN TO CLINIC: I reviewed the diagnosis, prognosis, and recommended treatment/procedure options with the patient (and/or their legal pharmaceutical service representative), including the potential benefits, risks, side effects and alternative therapies. We also discussed the option of no treatment and the possibility of clinical trial participation, if applicable. All questions were addressed, and they demonstrated understanding. They provided informed consent to proceed with the proposed plan of care. BILLING AND COMPLIANCE: I reviewed external records from providers outside my specialty as summarized above. I spent a total of 50 minutes on this patient?s care on the day of their visit excluding time spent related to any billed procedures. This time includes time spent with the patient as well as time spent documenting in the medical record, reviewing patients records and tests, obtaining history, placing orders, communicating with other healthcare professionals, counseling the patient, family or caregiver, and/or care coordination for the diagnoses above. Electronically Signed by: {Object.Sanct_ID*[email or web address]@M}, {Object.Sanct_ID*PnP.Suffix@U} D: {Object.Sanct_Date} T: {Object.Sanct_Time} CC: Jeff?Jodi,? PCP: Althea Boone Referring: Althea Boone This document was completed utilizing speech recognition software. Grammatical errors, random word insertions, pronoun errors, and incomplete sentences are an occasional consequence of this system due to software limitations, ambient noise, and hardware issues. Any formal questions or concerns about the content, text or information contained within the body of this dictation should be directly addressed to the provider for clarification.
== END 2025-03-12 23:59 | disposition home or self-care (01) ==
LOC: SCTC 15:06
PROVIDERS: Visit Provider Internal Medicine Hematology & Oncology
DX: C53.0 Malignant neoplasm of endocervix (principal); Z92.3 Personal history of irradiation; Z92.21 Personal history of antineoplastic chemotherapy; E66.9 Obesity, unspecified; Z71.3 Dietary counseling and surveillance; Z68.41 Body mass index [BMI] 40.0-44.9, adult
CPT/HCPCS: 36591; 80053; 85025; 86304; 99213; A4216; J1642; G0463

== ENCOUNTER → 2025-04-30 | Outpatient (CLI) | payer MEDICAID, SELFPAY ==
[2025-04-29 16:57] LABS: HCG Qualitative,Urine Negative
--- NOTE | 2025-04-30 14:00 | XR_ITS ---
Examination: MRI abdomen with intravenous contrast Date and time of exam: April 30, 2025, 1455 hours, comparison ultrasound abdomen June 06, 2023, PET/CT scan February 14, 2023 INDICATIONS: Diagnosis malignant neoplasm of endocervix diagnosed 2021, staging Technique: Multiple MRI axial and sagittal sections abdomen post intravenous administration 19 cc gadolinium Sagittal T2-weighted images, TR 3500, TE 118 T1 weighted transverse sections, TR 688 T8.5, T2-weighted sagittal sections T1 weighted sagittal sections TR 621, TE 30 T2 axial sections, TR 4, 190, TE 84. Findings: No liver lesions or biliary tract dilatation Mild hepatomegaly 16 cm Borderline splenomegaly 13 cm No extrahepatic biliary tract dilatation Normal pancreas normal adrenal glands No hydronephrosis No abdominal lymphadenopathy No ascites IMPRESSION: Mild hepatosplenomegaly No focal liver lesions No abdominal lymphadenopathy Normal adrenal glands
--- NOTE | 2025-04-30 14:30 | XR_ITS ---
EXAMINATION: MRI pelvis with intravenous contrast TECHNIQUE: Axial coronal and sagittal MR pelvis images post intravenous administration 19 cc gadolinium Date and time: April 30, 2025, 1455 hours, comparison PET/CT scan February 14, 2023 INDICATIONS: Diagnosis malignant neoplasm of endocervix diagnosed 2021 FINDINGS: Anteverted uterus, 6.4 x 4.0 x 4.0 cm No uterine or cervical mass Right ovary 3.2 x 1.8 cm Left ovary 2.6 x 1.8 cm Contracted urinary bladder No free fluid in the pelvis No common iliac, external iliac, internal iliac or common femoral lymphadenopathy Homogeneous marrow signal lower lumbar vertebral bodies, sacral segments, bones of the pelvis and hips IMPRESSION: No findings of metastatic disease:
== END | disposition home or self-care (01) ==
LOC: SMRI 13:49
PROVIDERS: Referring Provider Internal Medicine Hematology & Oncology; Visit Provider Internal Medicine Hematology & Oncology
DX: R16.2 Hepatomegaly with splenomegaly, not elsewhere classified (principal); C53.0 Malignant neoplasm of endocervix; Z32.00 Encounter for pregnancy test, result unknown
CPT/HCPCS: 72196; 74182; 81025; A9577